=== PATIENT | female | born 1930 | race Caucasian/White ===

== ENCOUNTER → 2016-08-16 | Day surgery (SDC) | payer MEDICARE, OTHER ==
[~2016-08-16] VITALS: Ht 157.5 cm; Wt 44.7 kg
[~2016-08-16] MED LIST: ALLER-CHLOR4 MG PO; ATIVAN0.5 MG PO; BACID CAPLET1 EACH PO; BENTYL10 M1 PO; CERTAGEN1 EACH PO; COLACE100 MG PO; DULCOLAX5 MG PO; FEOSOL325 MG PO; LAXATIVE SUPPOS10 MG PO; MILK OF MA400 MG/5 M PO; MIRALAX17 GM PO; NORCO 5-325 TA1 EACH PO; PROTONIX 40MG T40 MG PO; REGLAN5 MG PO; SENOKOT-S TABL1 EACH PO; SYNTHROID75 MCG PO; VITAMIN D1000 UNI1 PO; XARELTO10 MG PO
[2016-08-16 12:34] LABS: HCT 36.4 % (37.0-47.0); MCH 32.6 pg (25.0-31.0); MCV 98.9 fL (78.0-100.0); RBC 3.68 M/uL (4.20-5.40); WBC 7.6 K/uL (4.0-10.5)
[2016-08-16 12:35] LABS: PLT 191 K/uL (150-400)
[2016-08-16 12:38] LABS: INR 1.06 (0.9-1.2); PROTHROMBIN TIME 13.4 SECONDS (11.7-14.0); PTT 26.4 SECONDS (23.2-31.4)
[2016-08-16 12:56] LABS: CREATININE 0.8 mg/dL (0.5-1.0); POTASSIUM 4.6 mmol/L (3.5-5.1)
== END | disposition home or self-care (01) ==
LOC: FAS 10:19
PROVIDERS: Legal Medicine
DX: S52.031A Displaced fracture of olecranon process with intraarticular extension of right ulna, initial encounter for closed fracture (principal); W18.39XA Other fall on same level, initial encounter; M79.7 Fibromyalgia; M19.90 Unspecified osteoarthritis, unspecified site; E03.9 Hypothyroidism, unspecified; K44.9 Diaphragmatic hernia without obstruction or gangrene; K58.9 Irritable bowel syndrome, unspecified; Z88.0 Allergy status to penicillin; Z88.2 Allergy status to sulfonamides; Z88.5 Allergy status to narcotic agent; Z88.6 Allergy status to analgesic agent; Z88.8 Allergy status to other drugs, medicaments and biological substances; Z88.3 Allergy status to other anti-infective agents
CPT/HCPCS: 36415; 71010; 73070; 76000; 80048; 85610; 85730; 93005; C1713; J1170; J2795; J3010